=== PATIENT | male | born 1950 | race Two or more races ===

== ENCOUNTER 2024-02-13 09:18 | Emergency (ER) | payer OTHER ==
[~2024-02-13] VITALS: Ht 172.7 cm; Wt 72.6 kg
[2024-02-13] MEDS ORDERED: ROSUVASTATIN CAL5 MG PO (09:52)
[2024-02-13] MEDS ORDERED: METFORMIN HCL1000 M3 PO (09:52)
[2024-02-13] MEDS ORDERED: RIVASTIGMINE1 EACH TD (09:52)
[2024-02-13] MEDS ORDERED: RAMIPRIL5 MG (09:53)
[2024-02-13] MEDS ORDERED: SYNTHROID125 MCG PO (09:53)
[2024-02-13] MEDS ORDERED: ORPHENADRINE CITRATE 30 MG/ML AMPUL IM ONE (13:15)
[2024-02-13] MEDS ORDERED: KETOROLAC TROMETHAMINE 60 MG VIAL IM ONE (13:15)
== END 2024-02-13 18:15 | disposition home or self-care (01) ==
LOC: ER 09:20
DX: S42.213A Unspecified displaced fracture of surgical neck of unspecified humerus, initial encounter for closed fracture (principal); W19.XXXA Unspecified fall, initial encounter; Y93.89 Activity, other specified; Y92.89 Other specified places as the place of occurrence of the external cause; Y99.8 Other external cause status; I10 Essential (primary) hypertension; E03.8 Other specified hypothyroidism; E11.9 Type 2 diabetes mellitus without complications; Z79.84 Long term (current) use of oral hypoglycemic drugs; Z88.0 Allergy status to penicillin
CPT/HCPCS: 29105; 73030; 73200; 96372; 99284; J1885; J2360

== ENCOUNTER 2024-07-27 12:05 | Emergency (ER) | payer OTHER ==
[~2024-07-27] VITALS: Ht 170.2 cm; Wt 72.6 kg
[~2024-07-27 12:05] MED LIST: METFORMIN HCL1000 M3 PO; RAMIPRIL5 MG; RIVASTIGMINE1 EACH TD; ROSUVASTATIN CAL5 MG PO; SYNTHROID125 MCG PO
[2024-07-27] MEDS ORDERED: CARBIDOPA-LEVO1 EAC1 PO (12:20)
[2024-07-27] MEDS ORDERED: TOLTERODINE TART4 MG PO (12:20)
[2024-07-27] MEDS ORDERED: RAMIPRIL5 MG PO (12:21)
[2024-07-27] MEDS ORDERED: CHILDREN'S ASPI81 MG PO (12:22)
[2024-07-27] MEDS ORDERED: OMEPRAZOLE MAGN20 MG PO (12:22)
[2024-07-27] MEDS ORDERED: DOCUSATE CALCI240 MG PO (12:23)
[2024-07-27 13:29] LABS: HEMATOCRIT 39.1 % (39.0-48.0); HEMOGLOBIN 13.2 g/dL (13-16.00); MEAN CELL VOLUME 94.9 fL (80.0-100.00); MEAN CORPUSCULAR HEMOGLOBIN 32.1 pg (27.00-32.0); MEAN CORPUSCULAR HGB CONC 33.8 g/dl (32.0-36.0); PLATELET COUNT 172 K/uL (150-450); RED BLOOD COUNT 4.12 M/uL (4.00-6.00); RED CELL DISTRIBUTION WIDTH 13.7 % (11.5-14.5)
[2024-07-27 14:27] LABS: CALCIUM 9.5 mg/dL (8.5-10.1); CREATININE SERUM 1.05 mg/dL (0.70-1.30); GFR 69.63; POTASSIUM 4.33 mEq/L (3.5-5.1)
[2024-07-27 17:13] LABS: URINE APPEARANCE Turbid; URINE BILIRRUBIN Small (NEGATIVE); URINE BLOOD Moderate; URINE COLOR Red; URINE GLUCOSE Negative (NEGATIVE); URINE KETONE Negative (NEGATIVE); URINE LEUKOCYTE Moderate; URINE NITRATE Positive
[2024-07-27 17:17] LABS: URINE EPITHELIAL CELLS 1.4 uL (0.0-38.8); URINE WBC 1882.3 uL (0.0-23.2)
[2024-07-27 17:41] LABS: URINE BACTERIA > 9821.5 uL (0.0-1933); URINE CAST 0.63 uL (0.0-1.40); URINE PROTEIN 100 (NEGATIVE); URINE RBC > 10558.9 uL (0.0-20.8)
[2024-07-27] MEDS ORDERED: FAMOtidine 10 MG/ML (4ML VIAL) IV ONE (18:00)
[2024-07-27] MEDS ORDERED: CIPROFLOXACIN IN 5 % DEXTROSE 400 MG/200 ML PIGGYBAG IV ONE ×2 (18:00→18:01)
[2024-07-27] MEDS ORDERED: TAMSULOSIN HCL 0.4 MG CAP PO ONE ×2 (18:00→18:01)
[2024-07-27] MEDS ORDERED: FAMOTIDINE/PF 20 MG/2 ML VIAL ONE (18:01)
[2024-07-27] MEDS ORDERED: PEPCID AC20 MG PO (18:21)
[2024-07-27] MEDS ORDERED: PYRIDIUM DS200 MG PO (18:21)
[2024-07-27] MEDS ORDERED: TAMS0.4C PO (18:21)
[2024-07-27] MEDS ORDERED: BACTRIM DS TAB1 EACH PO (18:21)
== END 2024-07-27 20:09 | disposition home or self-care (01) ==
LOC: ER 12:08
PROVIDERS: General Practice
DX: R53.81 Other malaise (principal); R31.9 Hematuria, unspecified; N39.0 Urinary tract infection, site not specified; I10 Essential (primary) hypertension; Z88.0 Allergy status to penicillin
CPT/HCPCS: 36415; 96365; 99282; J0744; J3490